=== PATIENT | male | born 1960 | race Caucasian/White ===

== ENCOUNTER 2017-12-27 15:49 | Inpatient (IN) | payer OTHER ==
[~2017-12-27] VITALS: Ht 193 cm; Wt 114.2 kg
[2017-12-27 16:55] LABS: INTER. NORMALIZED RATIO 1.3
[2017-12-27 17:02] LABS: ALBUMIN 2.1 g/dL (3.2-4.8); CHLORIDE 101 mEq/L (99-109); POTASSIUM 3.5 mEq/L (3.7-5.4); SODIUM 137 mEq/L (136-147)
[2017-12-27 17:03] LABS: MAGNESIUM 1.3 mg/dL (1.3-2.7)
[2017-12-27 17:05] LABS: GLUCOSE 152 mg/dL (70-99); TOTAL PROTEIN 6.6 g/dL (6.4-8.3)
[2017-12-27 17:07] LABS: TOTAL BILIRUBIN 3.3 mg/dL (0.0-1.0)
[2017-12-27 17:08] LABS: ALKALINE PHOSPHATASE 185 IU/L (3-129); SERUM ETHYL ALCOHOL 319 mg/dL
[2017-12-27 17:09] LABS: CREATININE 0.8 mg/dL (0.6-1.3); GFR ESTIMATE (CALCULATED) > 59 mL/min/ (58.99-99999)
[2017-12-27 17:10] LABS: AST (GOT) 153 IU/L (2-34); UREA NITROGEN (BUN) 13 mg/dL (9-23)
[2017-12-27 17:11] LABS: ALT (GPT) 39 IU/L (3-49)
[2017-12-27 17:19] LABS: BASOPHIL (%) 2.5 % (0-1); BASOPHIL COUNT 0.1 K/uL (0-0.1); EOSINOPHIL (%) 1.9 % (0-5); EOSINOPHIL COUNT 0.1 K/uL (0-0.3); HEMATOCRIT 29.7 % (38.0-50.0); IMMATURE GRANULOCYTE (%) 0.9 % (0.0-0.7); LYMPHOCYTE (%) 39.6 % (15-42); LYMPHOCYTE COUNT 1.3 K/uL (1.0-2.8); MCH 36.4 PG (29.0-34.0); MCV 98.3 FL (86-99); MONOCYTE (%) 9.4 % (3-12); MONOCYTE COUNT 0.3 K/uL (0-0.8); NEUTROPHIL (%) 45.7 % (45-76); NEUTROPHIL COUNT 1.5 K/uL (1.8-6.4); RBC DIS.WIDTH-CV 18.8 % (11.8-14.6); RBC DIS.WIDTH-SD 68.3 % (39-53); RED BLOOD COUNT 3.02 M/uL (4.00-5.50); WHITE BLOOD COUNT 3.2 K/uL (4.1-10.2)
[2017-12-27 17:42] LABS: IMM.PLATELET FRACTION 7.6 (1-7); PLATELET COUNT 34 K/uL (156-360)
[2017-12-27 22:35] VITALS: BP 169/91
[2017-12-28 03:29] VITALS: BP 110/67
[2017-12-28 05:33] LABS: HEMATOCRIT 28.2 % (38.0-50.0); HEMOGLOBIN 10.2 G/DL (12.5-16.6); MCH 35.7 PG (29.0-34.0); MCHC 36.2 G/DL (30.0-36.0); MCV 98.6 FL (86-99); RBC DIS.WIDTH-CV 18.5 % (11.8-14.6); RBC DIS.WIDTH-SD 66.1 % (39-53); RED BLOOD COUNT 2.86 M/uL (4.00-5.50); WHITE BLOOD COUNT 3.2 K/uL (4.1-10.2)
[2017-12-28 06:05] LABS: PLAT.SUFFICIENCY DECREASED
[2017-12-28 06:13] LABS: PLATELET COUNT 31 K/uL (156-360)
[2017-12-28 07:24] VITALS: BP 137/77
[2017-12-28 11:23] VITALS: BP 163/81
[2017-12-28 15:20] VITALS: BP 155/81
[2017-12-28 19:17] VITALS: BP 129/76
[2017-12-28 23:24] VITALS: BP 151/73
[2017-12-29 04:08] VITALS: BP 137/78
[2017-12-29 06:06] LABS: HEMATOCRIT 28.8 % (38.0-50.0); HEMOGLOBIN 10.3 G/DL (12.5-16.6); MCH 36.1 PG (29.0-34.0); MCHC 35.8 G/DL (30.0-36.0); MCV 101.1 FL (86-99); RBC DIS.WIDTH-CV 18.3 % (11.8-14.6); RBC DIS.WIDTH-SD 67.7 % (39-53); RED BLOOD COUNT 2.85 M/uL (4.00-5.50); WHITE BLOOD COUNT 3.8 K/uL (4.1-10.2)
[2017-12-29 06:19] LABS: ALBUMIN 2.2 G/DL (3.2-4.8); ALKALINE PHOSPHATASE 119 IU/L (3-129); ALT (GPT) 30 IU/L (3-49); AST (GOT) 112 IU/L (2-34); CHLORIDE 103 MEQ/L (99-109); CREATININE 0.8 MG/DL (0.6-1.3); DIRECT BILIRUBIN 2.7 mg/dL (0.0-0.3); GFR ESTIMATE (CALCULATED) > 59 mL/min/ (58.99-99999); GLUCOSE 115 mg/dL (70-99); POTASSIUM 3.9 MEQ/L (3.7-5.4); SODIUM 135 MEQ/L (136-147); TOTAL BILIRUBIN 5.7 MG/DL (0.0-1.0); TOTAL PROTEIN 6.6 G/DL (6.4-8.3); UREA NITROGEN (BUN) 11 mg/dL (9-23)
[2017-12-29 06:45] LABS: PLAT.SUFFICIENCY DECREASED; PLATELET COUNT 31 K/uL (156-360)
[2017-12-29 07:21] VITALS: BP 139/75
[2017-12-29 10:54] LABS: HEMOGLOBIN A1c (GLYCOHEMOGLOB) 4.8 % (Below 5.7)
[2017-12-29 11:13] VITALS: BP 138/81
[2017-12-29 15:39] VITALS: BP 129/74
[2017-12-29 18:55] VITALS: BP 136/84
[2017-12-29 23:37] VITALS: BP 147/87
[2017-12-30 05:00] VITALS: BP 90/56
[2017-12-30 05:15] LABS: HEMATOCRIT 30.5 % (38.0-50.0); HEMOGLOBIN 10.8 G/DL (12.5-16.6); MCH 36.1 PG (29.0-34.0); MCHC 35.4 G/DL (30.0-36.0); NRBC (%) 0.3 /100 WBC (0-0); RBC DIS.WIDTH-SD 66.9 % (39-53); RED BLOOD COUNT 2.99 M/uL (4.00-5.50)
[2017-12-30 05:34] LABS: INTER. NORMALIZED RATIO 1.5
[2017-12-30 05:42] LABS: ALBUMIN 2.3 G/DL (3.2-4.8); ALKALINE PHOSPHATASE 146 IU/L (3-129); ALT (GPT) 28 IU/L (3-49); AST (GOT) 97 IU/L (2-34); CHLORIDE 101 MEQ/L (99-109); CREATININE 0.9 MG/DL (0.6-1.3); GFR ESTIMATE (CALCULATED) > 59 mL/min/ (58.99-99999); GLUCOSE 109 mg/dL (70-99); MAGNESIUM 1.3 mg/dl (1.3-2.7); POTASSIUM 3.6 MEQ/L (3.7-5.4); SODIUM 132 MEQ/L (136-147); TOTAL BILIRUBIN 5.3 MG/DL (0.0-1.0); TOTAL PROTEIN 6.9 G/DL (6.4-8.3); UREA NITROGEN (BUN) 15 mg/dL (9-23)
[2017-12-30 06:59] LABS: IMM.PLATELET FRACTION 7.1 (1-7); PLAT.SUFFICIENCY DECREASED
[2017-12-30 07:09] LABS: PLATELET COUNT 44 K/uL (156-360)
[2017-12-30 08:16] VITALS: BP 137/85
[2017-12-30 11:33] VITALS: BP 153/72
[2017-12-30 16:07] VITALS: BP 161/98
[2017-12-30 20:27] VITALS: BP 159/88
[2017-12-30 23:49] VITALS: BP 139/81
[2017-12-31 04:15] VITALS: BP 140/80
[2017-12-31 08:00] VITALS: BP 126/92
[2017-12-31 08:26] LABS: ALBUMIN 2.1 G/DL (3.2-4.8); ALKALINE PHOSPHATASE 117 IU/L (3-129); ALT (GPT) 24 IU/L (3-49); AST (GOT) 80 IU/L (2-34); CHLORIDE 103 MEQ/L (99-109); CREATININE 0.7 MG/DL (0.6-1.3); GFR ESTIMATE (CALCULATED) > 59 mL/min/ (58.99-99999); GLUCOSE 83 mg/dL (70-99); SODIUM 133 MEQ/L (136-147); TOTAL BILIRUBIN 4.9 MG/DL (0.0-1.0); TOTAL PROTEIN 6.7 G/DL (6.4-8.3); UREA NITROGEN (BUN) 15 mg/dL (9-23)
[2017-12-31 08:27] LABS: POTASSIUM 4.4 MEQ/L (3.7-5.4)
[2017-12-31 11:37] VITALS: BP 101/56
[2017-12-31 15:31] VITALS: BP 109/68
[2017-12-31 19:36] VITALS: BP 104/63
[2017-12-31 23:23] VITALS: BP 127/66
[2018-01-01 03:51] VITALS: BP 119/68
[2018-01-01 05:34] LABS: HEMATOCRIT 26.5 % (38.0-50.0); HEMOGLOBIN 9.3 G/DL (12.5-16.6); MCH 36.9 PG (29.0-34.0); MCHC 35.1 G/DL (30.0-36.0); MCV 105.2 FL (86-99); RBC DIS.WIDTH-SD 70.4 % (39-53); RED BLOOD COUNT 2.52 M/uL (4.00-5.50); WHITE BLOOD COUNT 3.6 K/uL (4.1-10.2)
[2018-01-01 06:04] LABS: ALBUMIN 1.9 G/DL (3.2-4.8); ALKALINE PHOSPHATASE 92 IU/L (3-129); ALT (GPT) 23 IU/L (3-49); AST (GOT) 68 IU/L (2-34); CHLORIDE 103 MEQ/L (99-109); CREATININE 0.9 MG/DL (0.6-1.3); GFR ESTIMATE (CALCULATED) > 59 mL/min/ (58.99-99999); GLUCOSE 97 mg/dL (70-99); POTASSIUM 4.5 MEQ/L (3.7-5.4); SODIUM 133 MEQ/L (136-147); TOTAL BILIRUBIN 4.1 MG/DL (0.0-1.0); TOTAL PROTEIN 5.9 G/DL (6.4-8.3)
[2018-01-01 06:06] LABS: UREA NITROGEN (BUN) 23 mg/dL (9-23)
[2018-01-01 06:21] LABS: IMM.PLATELET FRACTION 7.2 (1-7); PLAT.SUFFICIENCY DECREASED; PLATELET COUNT 45 K/uL (156-360)
[2018-01-01 07:40] VITALS: BP 126/69
[2018-01-01 11:30] VITALS: BP 135/74
[2018-01-01 15:45] VITALS: BP 105/68
[2018-01-01 19:16] VITALS: BP 126/66
[2018-01-01 23:02] VITALS: BP 129/65
[2018-01-02 05:22] VITALS: BP 134/63
[2018-01-02 07:26] VITALS: BP 145/79
[2018-01-02 11:24] VITALS: BP 141/76
[2018-01-02 15:24] VITALS: BP 132/67
[2018-01-02 20:31] VITALS: BP 113/60
[2018-01-03] VITALS (7 sets, daily range): BP systolic 115–144; BP diastolic 60–79
[2018-01-03 05:55] LABS: HEMATOCRIT 26.1 % (38.0-50.0); HEMOGLOBIN 9.2 G/DL (12.5-16.6); MCH 37.6 PG (29.0-34.0); MCHC 35.2 G/DL (30.0-36.0); MCV 106.5 FL (86-99); RBC DIS.WIDTH-SD 66.1 % (39-53); RED BLOOD COUNT 2.45 M/uL (4.00-5.50)
[2018-01-03 06:26] LABS: ALBUMIN 1.9 G/DL (3.2-4.8); ALT (GPT) 19 IU/L (3-49); AST (GOT) 55 IU/L (2-34); CHLORIDE 105 MEQ/L (99-109); CREATININE 0.7 MG/DL (0.6-1.3); GFR ESTIMATE (CALCULATED) > 59 mL/min/ (58.99-99999); GLUCOSE 107 mg/dL (70-99); POTASSIUM 3.6 MEQ/L (3.7-5.4); SODIUM 135 MEQ/L (136-147); TOTAL BILIRUBIN 3.6 MG/DL (0.0-1.0); TOTAL PROTEIN 5.7 G/DL (6.4-8.3); UREA NITROGEN (BUN) 13 mg/dL (9-23)
[2018-01-03 06:27] LABS: ALKALINE PHOSPHATASE 127 IU/L (3-129)
[2018-01-03 06:53] LABS: IMM.PLATELET FRACTION 6.1 (1-7); PLATELET COUNT 49 K/uL (156-360)
[2018-01-04 03:46] VITALS: BP 134/74
[2018-01-04 08:03] VITALS: BP 134/61
[2018-01-04 12:22] VITALS: BP 124/80
[2018-01-04 16:10] VITALS: BP 144/82
== END 2018-01-04 21:00 | disposition left against medical advice (07) | DRG 441 ==
LOC: EME 15:49 → EDOF 19:17 → 3EAST 19:17 → 4EAST 19:17 → ENRESERV 19:19 → CANRESERV 19:19 → ENRESERV 19:22 → 4EAST 22:38 → ENRESERV 12-29 09:18 → 3EAST 12-29 09:19 → ENRESERV 12-29 09:29 → 3EAST 12-29 10:45
PROVIDERS: Emergency Medicine; Family Medicine; Surgery
PROC: 0HQ1XZZ Repair Face Skin, External Approach (ICD-10-PCS; principal; 2017-12-27)
DX: K72.00 Acute and subacute hepatic failure without coma (principal); F10.230 Alcohol dependence with withdrawal, uncomplicated; F10.220 Alcohol dependence with intoxication, uncomplicated; Y90.8 Blood alcohol level of 240 mg/100 ml or more; S06.6X9A Traumatic subarachnoid hemorrhage with loss of consciousness of unspecified duration, initial encounter; S02.2XXA Fracture of nasal bones, initial encounter for closed fracture; S22.41XA Multiple fractures of ribs, right side, initial encounter for closed fracture; W19.XXXA Unspecified fall, initial encounter; R56.9 Unspecified convulsions; F17.210 Nicotine dependence, cigarettes, uncomplicated; K74.60 Unspecified cirrhosis of liver; D61.818 Other pancytopenia; R73.9 Hyperglycemia, unspecified; E88.09 Other disorders of plasma-protein metabolism, not elsewhere classified; E87.6 Hypokalemia; K70.9 Alcoholic liver disease, unspecified; S01.111A Laceration without foreign body of right eyelid and periocular area, initial encounter; H11.31 Conjunctival hemorrhage, right eye; R29.6 Repeated falls
CPT/HCPCS: 70450; 70486; 71260; 72125; 73130; 74177; 80048; 80053; 80076; 82140; 83036; 83735; 85025; 85027; 85610; 85730; 93005; 94760; 95819; 97530 GP; 99281; 99285; G0378; G0480; G8978 GP CJ; G8979 GP CI; J2060; J2405; J3475; J7120